=== PATIENT | female | born 1950 | race Caucasian/White ===

== ENCOUNTER 2023-07-21 10:08 | Inpatient (IN) | payer MEDICARE ==
--- NOTE | 2023-07-21 10:26 | ED ---
Chest Pain HPI - General Chief Complaint: Chest Pain Stated Complaint: sob,dizziness,Tachy Time Seen by Provider: 07/21/23 10:25 Source: patient, family, RN notes reviewed Mode of arrival: ambulatory Limitations: no limitations - History of Present Illness Initial Comments: This is a 72-year-old female who presents to the emergency department for chest pain, dizziness, and shortness of breath. Symptoms started after waking up this morning and have since progressed. She denies any history of cardiac problems. States that she also feels very weak and looks paler in color than normal. She does admit to a few episodes of palpitations with exertion in the last couple of weeks as well. She has minor lower abdominal discomfort but denies any nausea, vomiting, blood in her stool, or black/tarry stools. MD Complaint: chest pain - Related Data Home Medications Medication Instructions Recorded Confirmed Simvastatin [Zocor] 20 mg PO HS 08/13/15 07/21/23 Citalopram Hydrobromide [CeleXA] 40 mg PO DAILY 07/21/23 07/21/23 traZODone HCL [Desyrel] 25 mg PO HS PRN 07/21/23 07/21/23 Allergies Allergy/AdvReac Type Severity Reaction Status Date / Time No Known Allergies Allergy Verified 07/21/23 14:33 Review of Systems ROS Statement: Those systems with pertinent positive or pertinent negative responses have been documented in the HPI. ROS Other: All systems not noted in ROS Statement are negative. Past Medical History Past Medical History: Hyperlipidemia History of Any Multi-Drug Resistant Organisms: None Reported Past Surgical History: Tubal Ligation Past Anesthesia/Blood Transfusion Reactions: Motion Sickness Past Alcohol Use History: None Reported Past Drug Use History: None Reported - Past Family History Father Family Medical History: Diabetes Mellitus Mother Additional Family Medical History / Comment(s): pulmonary fibrosis Sister(s) Family Medical History: Diabetes Mellitus Brother(s) Family Medical History: Pulmonary Embolus General Exam - General Exam Comments Initial Comments: Visual Physical Exam Vital signs reviewed General: Well-appearing, nontoxic, no acute distress. Head: Normocephalic, atraumatic Eyes: PERRLA, EOMI ENT: Airway patent Chest: Nonlabored breathing Skin: No visual rash, normal skin tone Neuro: Alert and oriented 3 Musculoskeletal: No gross abnormalities Limitations: no limitations General appearance: alert, in no apparent distress Head exam: Present: atraumatic, normocephalic, normal inspection Respiratory exam: Present: normal lung sounds bilaterally. Absent: respiratory distress, wheezes, rales, rhonchi, stridor Cardiovascular Exam: Present: regular rate, normal rhythm, normal heart sounds. Absent: systolic murmur, diastolic murmur, rubs, gallop, clicks GI/Abdominal exam: Present: soft, normal bowel sounds. Absent: distended, tenderness, guarding, rebound, rigid Rectal exam: Present: heme (-) stool, hemorrhoids. Absent: mass, tenderness Neurological exam: Present: alert, oriented X3, CN II-XII intact Psychiatric exam: Present: normal affect, normal mood Skin exam: Present: warm, dry, intact, normal color. Absent: rash Course Vital Signs 07/21/23 07/21/23 07/21/23 10:31 16:52 17:06 Temperature 98.0 F 98.6 F 97.7 F Pulse Rate 110 H 104 H 91 Respiratory 18 18 18 Rate Blood Pressure 126/71 133/52 148/67 O2 Sat by Pulse 100 100 100 Oximetry 07/21/23 07/21/23 07/21/23 17:26 19:27 20:21 Temperature 97.8 F 99.2 F 98.4 F Pulse Rate 87 112 H 106 H Respiratory 18 18 18 Rate Blood Pressure 131/70 145/58 135/66 O2 Sat by Pulse 100 100 Oximetry 07/21/23 07/21/23 07/21/23 20:27 20:47 22:51 Temperature 98.1 F 97.9 F 98.1 F Pulse Rate 100 101 H 99 Respiratory 16 16 16 Rate Blood Pressure 134/63 135/60 150/78 O2 Sat by Pulse 99 99 97 Oximetry 07/21/23 22:52 Temperature Pulse Rate Respiratory 16 Rate Blood Pressure O2 Sat by Pulse Oximetry Chest Pain MDM - MDM This is a 72 year old female who presents to the emergency department for chest pain and dizziness. Was pt. sent in by a medical professional or institution? @ -No Did you speak to anyone other than the patient for history? @ -No Did you review nursing and triage notes? @ -Yes, and I agree, it is accurate with regards to the patient's symptoms. Were old charts reviewed? @ -No Differential Diagnosis? @ -Differential Dizziness: Benign paroxysmal positional Vertigo, Menieres disease, otitis media, acoustic neuroma, vertebrobasilar insufficiency, cerebellar stroke, encephalitis, hypovolemic, arrhythmia, coronary artery syndrome, anemia, this is not meant to be an all-inclusive list EKG interpreted by me (3pts min.)? @ -EKG interpreted by me demonstrating the following: Sinus tachycardia. Ventricular rate 100 bpm, ND interval 132 ms, QRS duration 81 ms, QTc 414 ms. X-rays interpreted by me (1pt min.)? @ -Chest x-ray obtained, my interpretation identifies no localized consolidations or infiltrates. CT interpreted by me (1pt min.)? @ -Not obtained U/S interpreted by me (1pt. min.)? @ -Not obtained What testing was considered but not performed? (CT, X-rays, U/S, labs)? Why? @ -None What meds were considered but not given? Why? @ -None Did you discuss the management of the patient with other professionals? @ -Yes, Dr. Maynard, who accepts the patient for admission. Did you reconcile home meds? @ -Yes Was smoking cessation discussed for >3mins.? @ -No Was critical care preformed (if so, how long)? @ -No Were there social determinants of health that impacted care today? How? (Homelessness, low income, unemployed, alcoholism, drug addiction, transportation, low edu. Level, literacy, decrease access to med. care, retirement, rehab)? @ -No Was there de-escalation of care discussed even if they declined? (Discuss DNR or withdrawal of care, Hospice)? @ -No What co-morbidities impacted this encounter? (DM, HTN, Smoking, COPD, CAD, Cancer, CVA, Hep., AIDS, mental health diagnosis, sleep apnea, morbid obesity)? @ -HTN, HLD, DM Was patient admitted / discharged? @ -Admitted. Lab work obtained revealing anemia with a hemoglobin of 5.5. Stool occult negative. Patient denies any black/tarry stools or blood in her stool. She had minor discomfort in her abdomen earlier that has since resolved. Denies any nausea/vomiting. She had a normal Cologuard test 6 months ago. Denies any history of anemia or low hemoglobin in the past. States that her hemoglobin is typically elevated. She has never required a blood transfusion. Lab work was otherwise fairly unremarkable. Chest x-ray reveals no acute process. She did have an itchy rash to the back of her left shoulder and Kenalog cream was applied to this. 2 units of packed red blood cells were ordered for the anemia. The cause of the anemia is not clear at this point. Iron profile, ferritin level, vitamin B12, and Folate ordered with results pending at the time of admission. Patient admitted to medicine for anemia and dizziness. Consult placed for hematology/oncology. Undiagnosed new problem with uncertain prognosis? @ -None Drug Therapy requiring intensive monitoring for toxicity (Heparin, Nitro, Insulin, Cardizem)? @ -None Were any procedures done? @ -None Diagnosis/symptom? @ -Anemia, dizziness Acute, or Chronic, or Acute on Chronic? @ -Acute Uncomplicated (without systemic symptoms) or Complicated (systemic symptoms)? @ -Complicated Side effects of treatment? @ -None Exacerbation, Progression, or Severe Exacerbation] @ -Not applicable Poses a threat to life or bodily function? @ -Yes This case was discussed in detail with the attending ED physician, Dr. Rooney. Presentation, findings, and treatment plan discussed in detail as well. Disposition Clinical Impression: Anemia, Dizziness Disposition: ADMITTED IP TO THIS [facility] Time of Disposition: 14:31
[2023-07-21 11:27] LABS: ALT 12 U/L (4-34); AST 28 U/L (14-36); African American GFR (CKD) >90 (>60 ml/min/1.73 sqM); Albumin 3.9 g/dL (3.5-5.0); Alkaline Phosphatase 92 U/L (38-126); Anion Gap 9 mmol/L; Blood Urea Nitrogen 6 mg/dL (7-17); Calcium 9.2 mg/dL (8.4-10.2); Carbon Dioxide 24 mmol/L (22-30); Chloride 102 mmol/L (98-107); Glucose 263 mg/dL (74-99); Magnesium 1.8 mg/dL (1.6-2.3); Non-African American GFR(CKD) >90 (>60 ml/min/1.73 sqM); Potassium 3.4 mmol/L (3.5-5.1); Sodium 135 mmol/L (137-145); Total Bilirubin 1.1 mg/dL (0.2-1.3)
[2023-07-21 11:36] LABS: Prothrombin Time 10.6 sec (10.0-12.5)
[2023-07-21 11:43] LABS: Partial Thromboplastin Time 20.7 sec (22.0-30.0)
[2023-07-21 12:00] LABS: Anisocytosis Slight; Basophils % (A) 0 %; Eosinophils % (A) 1 %; HCT 20.7 % (34.0-46.0); Hypochromasia Marked; Lymphocytes # (A) 0.5 k/uL (1.0-4.8); Lymphocytes % (A) 13 %; MCH 16.4 pg (25.0-35.0); MCHC 26.4 g/dL (31.0-37.0); MCV 61.9 fL (80.0-100.0); Mean Platelet Volume 7.5; Microcytosis Marked; Monocytes # (A) 0.2 k/uL (0-1.0); Monocytes % (A) 6 %; Neutrophils # (A) 2.8 k/uL (1.3-7.7); Neutrophils % (A) 77 %; Platelet Count 308 k/uL (150-450); Poikilocytosis Slight; RBC 3.34 m/uL (3.80-5.40); WBC 3.6 k/uL (3.8-10.6)
[2023-07-21 12:10] LABS: Appearance,Urine Clear (Clear); Bilirubin,Urine Negative (Negative); Blood,Urine Negative (Negative); Color,Urine Colorless; Glucose,Urine (UA) Negative (Negative); Ketones,Urine 1+ (Negative); Leukocyte Esterase,Urine Negative (Negative); Nitrite,Urine Negative (Negative); PH, Urine 8.5 (5.0-8.0); Protein,Urine Negative (Negative); Specific Gravity,Urine 1.011 (1.001-1.035); Urobilinogen,Urine <2.0 mg/dL (<2.0)
[2023-07-21 12:17] LABS: HGB 5.5 gm/dL (11.4-16.0)
--- NOTE | 2023-07-21 12:24 | XR ---
EXAMINATION TYPE: XR chest 2V DATE OF EXAM: 07/21/2023 11:48 AM CLINICAL INDICATION:Female, 72 years old with history of Chest Pain; COMPARISON: Chest radiographs from 07/21/2023 TECHNIQUE: XR chest 2V Frontal and lateral views of the chest. FINDINGS: Lungs/Pleura: There is no evidence of pleural effusion, focal consolidation, or pneumothorax. Pulmonary vascularity: Unremarkable. Heart/mediastinum: Cardiomediastinal silhouette is unremarkable. Musculoskeletal: No acute osseous pathology. IMPRESSION: No acute cardiopulmonary disease/process.
[2023-07-21] MEDS: TRIAMCINOLONE 0.1% CREAM 80 GM TUBE TOPICAL ONE (14:11)
[2023-07-21] MEDS ORDERED: NALOXONE 0.4 MG/ML 1 ML VIAL IV PRN (14:31)
[2023-07-21] MEDS ORDERED: MORPHINE SULFATE 4 MG/ML SYRINGE IV PRN (14:31)
[2023-07-21] MEDS ORDERED: ACETAMINOPHEN TAB 325 MG TAB PO PRN (14:31)
[2023-07-21] MEDS ORDERED: ONDANSETRON 4 MG/2 ML VIAL IVP PRN (14:31)
[2023-07-21] MEDS ORDERED: DEXTROSE 50% SYRINGE 50 ML IVP PRN ×2 (15:08)
[2023-07-21] MEDS: PANTOPRAZOLE 40 MG/10 ML VIAL IVP ONE (15:53)
[2023-07-21 16:55] LABS: Glucose,Whole Blood 194 mg/dL (70-110)
[2023-07-21] MEDS: INSULIN ASPART (NovoLOG) 100 UNIT/ML VIAL SQ SCH (18:59)
[2023-07-21] MEDS: ATORVASTATIN 10 MG TAB PO SCH (20:29)
--- NOTE | 2023-07-21 20:36 | P.HPIM ---
History of Present Illness H&P Date: 07/21/23 Chief Complaint: Generalized weakness Patient is a 72-year-old female with a past medical history of diabetes type 2 iys-nqafcol-wkpehazkt, h hyperlipidemia presents to ER with complaints of generalized weakness worsening for the past 2 weeks. Patient states that she feels very tired and increased heart rate with minimal walking. Patient was also excessively dyspneic. Otherwise patient denied any complaints of chest pain/tightness. No complaints of nausea or vomiting. Complains of minimal lower abdominal discomfort. Denied any hematemesis. Patient states that she noticed specks of dark stool few days ago. Denies any dark tarry stools. Patient thought her symptoms are due to her diabetic medications. Patient does take Aleve twice daily and has been taking more often recently. Chest x-ray showed no acute cardiopulmonary process/disease. EKG showed sinus tachycardia. Laboratory data showed WBC 3.6 hemoglobin 5.5 MCV 61.9 and platelets 308 RDW 19.0 Sodium 135 potassium 3.4 chloride 102 BUN 6 and creatinine 0.51 and blood sugar 263. Urinalysis is negative for infection Stool for occult blood is negative. Review of Systems Constitutional: Patient denies any fever or chills . Patient does have generalized weakness. Denied weight loss. Abdomen: Patient denied nausea vomiting and diarrhea. Minimal lower abdominal pain.. Cardiovascular: Patient denies any chest pain. Patient does have exertional r short of breath and palpitations. No leg swelling Respiratory: patient denied any cough is from production. Exertional shortness of breath Neurologic: Patient denied any numbness or tingling headache. Musculoskeletal: Patient denies any complaints of joint swelling or deformity. Skin: Negative Psychiatric: Negative Endocrine: No heat or cold intolerance. No recent weight gain. Genitourinary: No dysuria or hematuria. All other 14 point ROS negative except the above Past Medical History Past Medical History: Hyperlipidemia Additional Past Medical History / Comment(s): seasonal allergies History of Any Multi-Drug Resistant Organisms: None Reported Past Surgical History: Tubal Ligation Past Anesthesia/Blood Transfusion Reactions: Motion Sickness Past Alcohol Use History: None Reported Past Drug Use History: None Reported - Past Family History Father Family Medical History: Diabetes Mellitus Mother Additional Family Medical History / Comment(s): pulmonary fibrosis Sister(s) Family Medical History: Diabetes Mellitus Brother(s) Family Medical History: Pulmonary Embolus Medications and Allergies Home Medications Medication Instructions Recorded Confirmed Type Simvastatin [Zocor] 20 mg PO HS 08/13/15 07/21/23 History Citalopram Hydrobromide [CeleXA] 40 mg PO DAILY 07/21/23 07/21/23 History traZODone HCL [Desyrel] 25 mg PO HS PRN 07/21/23 07/21/23 History Allergies Allergy/AdvReac Type Severity Reaction Status Date / Time No Known Allergies Allergy Verified 07/21/23 14:33 Physical Exam Vitals: Vital Signs Temp Pulse Resp BP Pulse Ox 07/21/23 20:27 98.1 F 100 16 134/63 99 07/21/23 20:21 98.4 F 106 H 18 135/66 100 07/21/23 19:27 99.2 F 112 H 18 145/58 100 07/21/23 17:26 97.8 F 87 18 131/70 07/21/23 17:06 97.7 F 91 18 148/67 100 07/21/23 16:52 98.6 F 104 H 18 133/52 100 07/21/23 10:31 98.0 F 110 H 18 126/71 100 Intake and Output 07/21/23 07/21/23 07/21/23 06:59 14:59 22:59 Intake Total 310 Balance 310 Intake: Blood Product 310 As-1 Unit 310 [id number] As-1 Unit 0 [id number] Other: Weight 63.503 kg 63.503 kg PHYSICAL EXAMINATION: Patient is lying in the bed comfortably, no acute distress, awake alert and oriented.. HEENT: Normocephalic. Neck is supple. Pupils reactive. Nostrils clear. Oral cavity is moist. Neck reveals no JVD, carotid bruits, or thyromegaly. CHEST EXAMINATION: Trachea is central. Symmetrical expansion. Lung rojas clear to auscultation and percussion. CARDIAC: Normal S1, S2 with no gallops. No murmurs, tachycardic ABDOMEN: Soft. Bowel sounds normal. No organomegaly. No abdominal bruits. Extremities: reveal no edema. No clubbing or cyanosis Neurologically awake, alert, oriented x3 with well-coordinated movements. No focal deficits noted Skin: No rash or skin lesions. Psychiatric: Coperative. Nonsuicidal Musculoskeletal: No joint swelling or deformity. Normal range of motion. Results CBC & Chem 7: 07/21/23 10:56 07/21/23 10:56 Labs: Abnormal Lab Results - Last 24 Hours (Table) 07/21/23 07/21/23 07/21/23 Range/Units 10:56 10:56 10:56 WBC 3.6 L (3.8-10.6) k/uL RBC 3.34 L (3.80-5.40) m/uL Hgb 5.5 L* (11.4-16.0) gm/dL Hct 20.7 L (34.0-46.0) % MCV 61.9 L (80.0-100.0) fL MCH 16.4 L (25.0-35.0) pg MCHC 26.4 L (31.0-37.0) g/dL RDW 19.0 H (11.5-15.5) % Lymphocytes # 0.5 L (1.0-4.8) k/uL APTT 20.7 L (22.0-30.0) sec Sodium (137-145) mmol/L Potassium (3.5-5.1) mmol/L BUN (7-17) mg/dL Creatinine (0.52-1.04) mg/dL Glucose (74-99) mg/dL POC Glucose (mg/dL) (70-110) mg/dL Total Protein (6.3-8.2) g/dL Folate (4.40-31.00) ng/mL Urine pH 8.5 H (5.0-8.0) Urine Ketones 1+ H (Negative) Crossmatch 07/21/23 07/21/23 07/21/23 Range/Units 10:56 10:56 14:00 WBC (3.8-10.6) k/uL RBC (3.80-5.40) m/uL Hgb (11.4-16.0) gm/dL Hct (34.0-46.0) % MCV (80.0-100.0) fL MCH (25.0-35.0) pg MCHC (31.0-37.0) g/dL RDW (11.5-15.5) % Lymphocytes # (1.0-4.8) k/uL APTT (22.0-30.0) sec Sodium 135 L (137-145) mmol/L Potassium 3.4 L (3.5-5.1) mmol/L BUN 6 L (7-17) mg/dL Creatinine 0.51 L (0.52-1.04) mg/dL Glucose 263 H (74-99) mg/dL POC Glucose (mg/dL) (70-110) mg/dL Total Protein 6.0 L (6.3-8.2) g/dL Folate 32.10 H (4.40-31.00) ng/mL Urine pH (5.0-8.0) Urine Ketones (Negative) Crossmatch See Detail 07/21/23 Range/Units 16:54 WBC (3.8-10.6) k/uL RBC (3.80-5.40) m/uL Hgb (11.4-16.0) gm/dL Hct (34.0-46.0) % MCV (80.0-100.0) fL MCH (25.0-35.0) pg MCHC (31.0-37.0) g/dL RDW (11.5-15.5) % Lymphocytes # (1.0-4.8) k/uL APTT (22.0-30.0) sec Sodium (137-145) mmol/L Potassium (3.5-5.1) mmol/L BUN (7-17) mg/dL Creatinine (0.52-1.04) mg/dL Glucose (74-99) mg/dL POC Glucose (mg/dL) 194 H (70-110) mg/dL Total Protein (6.3-8.2) g/dL Folate (4.40-31.00) ng/mL Urine pH (5.0-8.0) Urine Ketones (Negative) Crossmatch Thrombosis Risk Factor Assmnt - DVT/VTE Prophylaxis DVT/VTE Prophylaxis: Mechanical Prophylaxis ordered - Choose All That Apply Any of the Below Risk Factors Present?: No Other Risk Factors: Yes Each Risk Factor Represents 2 Points: Age 61-74 years Other congenital or acquired thrombophilia - If yes, enter type in comment: No Thrombosis Risk Factor Assessment Total Risk Factor Score: 2 Thrombosis Risk Factor Assessment Level: Low Risk Assessment and Plan Assessment: Symptomatic anemia with hemoglobin 5.5 on admission Microcytic anemia rule out iron deficiency Hypovolemic hyponatremia Mild hypokalemia Hyperglycemia with uncontrolled diabetes type 2 [id number]-menzlbteo Hyperlipidemia History of NSAID/Aleve use GI and DVT prophylaxis with SCDs Plan: Patient will be continued on IV hydration with normal saline. Monitor PRBC was ordered. Monitor H&H closely. Follow-up iron profile, B12 and folate and TSH levels. FOBT is negative. Due to history of NSAID use patient will be given Protonix IV push and hematology was consulted for evaluation. Continue with insulin sliding scale and follow-up A1c level Current with home medications. Discussed with the patient and her at bedside in detail. Time with Patient: Greater than 30
[2023-07-21 20:51] LABS: % Iron Saturation 2.31 (12.00-45.00); Ferritin 2.8 ng/mL (10.0-291.0)
[2023-07-21] MEDS: POTASSIUM CHLORIDE ER 20 MEQ TAB.ER PO STA (21:11)
[2023-07-21] MEDS: SODIUM CHLORIDE 0.9% 1,000 ML IV SCH (23:01)
[2023-07-22] MEDS: hydrOXYzine HCL 25 MG TAB PO STA (03:27)
[2023-07-22 06:06] LABS: Glucose,Whole Blood 203 mg/dL (70-110)
[2023-07-22 08:04] LABS: Anisocytosis Moderate; Basophils % (A) 1 %; Eosinophils # (A) 0.1 k/uL (0-0.7); Eosinophils % (A) 2 %; HCT 28.3 % (34.0-46.0); Hypochromasia Marked; Lymphocytes # (A) 0.8 k/uL (1.0-4.8); Lymphocytes % (A) 22 %; MCH 21.2 pg (25.0-35.0); MCHC 29.7 g/dL (31.0-37.0); Mean Platelet Volume 9.4; Microcytosis Marked; Monocytes # (A) 0.2 k/uL (0-1.0); Monocytes % (A) 7 %; Neutrophils # (A) 2.3 k/uL (1.3-7.7); Neutrophils % (A) 65 %; Platelet Count 286 k/uL (150-450); Poikilocytosis Marked; RBC 3.96 m/uL (3.80-5.40); RDW 22.5 % (11.5-15.5); WBC 3.5 k/uL (3.8-10.6)
[2023-07-22 08:06] LABS: HGB 8.4 gm/dL (11.4-16.0)
[2023-07-22 08:07] LABS: MCV 71.3 fL (80.0-100.0)
[2023-07-22 08:19] LABS: African American GFR (CKD) >90 (>60 ml/min/1.73 sqM); Anion Gap 8 mmol/L; Blood Urea Nitrogen 6 mg/dL (7-17); Calcium 9.2 mg/dL (8.4-10.2); Carbon Dioxide 23 mmol/L (22-30); Chloride 106 mmol/L (98-107); Glucose 167 mg/dL (74-99); Non-African American GFR(CKD) >90 (>60 ml/min/1.73 sqM); Sodium 137 mmol/L (137-145)
[2023-07-22] MEDS: CITALOPRAM HYDROBROMIDE 20 MG TAB PO SCH (08:41)
[2023-07-22] MEDS: SODIUM FERRIC GLUCONAT-SUCROSE 125 MG in SODIUM CHLORIDE 0.9% 100 ML IVPB SCH (09:52)
[2023-07-22 10:19] LABS: T4, Free (Free Thyroxine) 1.07 ng/dL (0.78-2.19)
[2023-07-22 11:46] LABS: Glucose,Whole Blood 209 mg/dL (70-110)
[2023-07-22] MEDS: PANTOPRAZOLE 40 MG TABLET PO SCH (12:39)
--- NOTE | 2023-07-22 15:57 | P.CONS ---
History of Present Illness - Reason for Consult Consult date: 07/22/23 Symptomatic anemia Requesting physician: Victor Hugo Maynard - Chief Complaint Shortness of breath, weakness - History of Present Illness This is a pleasant 72-year-old female who presented to the emergency department with complaints of shortness of breath, dyspnea on exertion and weakness. She has a past medical history of type 2 diabetes mellitus, and hyperlipidemia. S tatbennett symptoms have been ongoing over the last couple weeks. Patient presented to the emergency department underwent blood work and was found to be anemic. Gastroenterology was consulted for symptomatic anemia. Patient's hemoglobin on admission was 5.5, she is status post 2 units of blood transfusion. She denies any black stool or blood in her stool. States that she has had some abdominal discomfort at times but states she eats a lot of fruits and vegetables and thinks it is related to that. She denies any history of a GI bleed. She denies any anticoagulation, she does take 81 mg aspirin daily as well as 1 Aleve at bedtime for muscle pain for the last 2 months duration. No history of peptic ulcer disease or anemia. She states she had an EGD probably about 10 years ago down in 1 diet but that was normal. Last colonoscopy was with Dr. Devine in 2016 with findings of diverticulosis and external hemorrhoids. Patient does admit to drinking about one third of a liter of wine nightly as well as a glass of vodka nightly although she has not been drinking the vodka this past week. She states she drinks to help her sleep and this has been ongoing for some time. She denies any known history of any liver disease. Liver enzymes are normal. Review of Systems REVIEW OF SYSTEMS: CARDIOPULMONARY: No chest pain or shortness of breath. Dyspnea with exertion. Gastrointestinal: No abdominal pain or epigastric pain. No nausea or vomiting. No hematemesis, coffee-ground emesis. No rectal bleeding, or melena. GENITOURINARY: No dysuria or hematuria. MUSCULOSKELETAL: Reports normal range of motion., Joint pain. SKIN: No rashes. No jaundice. ENDOCRINE: No chills, fevers. No excessive weight gain or loss. No polydipsia or polyuria. PSYCHIATRIC: Unremarkable. NEUROLOGY: No change in mental status. Denies dizziness, headache. ENT: Vision unremarkable. CONSTITUTIONAL: No recent weight loss. No fever, chills, night sweats. Increased weakness and fatigue. Past Medical History Past Medical History: Hyperlipidemia Additional Past Medical History / Comment(s): seasonal allergies History of Any Multi-Drug Resistant Organisms: None Reported Past Surgical History: Tubal Ligation Past Anesthesia/Blood Transfusion Reactions: Motion Sickness Past Alcohol Use History: None Reported Past Drug Use History: None Reported - Past Family History Father Family Medical History: Diabetes Mellitus Mother Additional Family Medical History / Comment(s): pulmonary fibrosis Sister(s) Family Medical History: Diabetes Mellitus Brother(s) Family Medical History: Pulmonary Embolus Medications and Allergies Home Medications Medication Instructions Recorded Confirmed Type Simvastatin [Zocor] 20 mg PO HS 08/13/15 07/21/23 History Citalopram Hydrobromide [CeleXA] 40 mg PO DAILY 07/21/23 07/21/23 History traZODone HCL [Desyrel] 25 mg PO HS PRN 07/21/23 07/21/23 History Allergies Allergy/AdvReac Type Severity Reaction Status Date / Time No Known Allergies Allergy Verified 07/21/23 14:33 Physical Exam Vitals: Vital Signs Temp Pulse Pulse Resp BP BP Pulse Ox 07/22/23 15:38 98.7 F 88 16 138/74 98 07/22/23 12:07 99 07/22/23 11:16 105 H 16 164/77 99 07/22/23 08:38 16 07/22/23 08:37 98.2 F 98 16 124/64 99 07/22/23 04:00 98.3 F 77 16 126/80 97 07/22/23 02:00 16 07/21/23 22:52 16 07/21/23 22:51 98.1 F 99 16 150/78 97 07/21/23 20:47 97.9 F 101 H 16 135/60 99 07/21/23 20:27 98.1 F 100 16 134/63 99 07/21/23 20:21 98.4 F 106 H 18 135/66 100 07/21/23 19:27 99.2 F 112 H 18 145/58 100 07/21/23 17:26 97.8 F 87 18 131/70 07/21/23 17:06 97.7 F 91 18 148/67 100 07/21/23 16:52 98.6 F 104 H 18 133/52 100 Intake and Output 07/22/23 07/22/23 07/22/23 06:59 14:59 22:59 Intake Total 480 358 Balance 480 358 Intake: Oral 480 358 Other: # Voids 1 1 General appearance: The patient is alert, oriented, appears in no acute distress. HET: Head is normocephalic and atraumatic. Conjunctiva pink. Sclera anicteric. Neck: Supple without lymphadenopathy. Trachea midline. Heart: Regular. Lungs: Equal expansion, normal respiratory effort. Abdomen: Soft, nontender, nondistended with bowel sounds. No guarding or rigidity. Skin: No rashes. No jaundice. Extremities: Normal skin color and turgor. No pedal edema. Neurological: No focal deficits. Alert and oriented x3. Results CBC & Chem 7: 07/22/23 07:34 07/22/23 07:34 Labs: Abnormal Lab Results - Last 24 Hours (Table) 07/21/23 07/21/23 07/21/23 Range/Units 10:56 10:56 14:00 WBC (3.8-10.6) k/uL Hgb (11.4-16.0) gm/dL Hct (34.0-46.0) % MCV (80.0-100.0) fL MCH (25.0-35.0) pg MCHC (31.0-37.0) g/dL RDW (11.5-15.5) % Lymphocytes # (1.0-4.8) k/uL BUN (7-17) mg/dL Glucose (74-99) mg/dL POC Glucose (mg/dL) (70-110) mg/dL Hemoglobin A1c (<=6.0) % Iron 10 L (50-170) UG/DL % Saturation 2.31 L (12.00-45.00) Ferritin 2.8 L (10.0-291.0) ng/mL Folate 32.10 H (4.40-31.00) ng/mL TSH (0.465-4.680) mIU/L Crossmatch See Detail 07/21/23 07/22/23 07/22/23 Range/Units 16:54 06:03 07:34 WBC (3.8-10.6) k/uL Hgb (11.4-16.0) gm/dL Hct (34.0-46.0) % MCV (80.0-100.0) fL MCH (25.0-35.0) pg MCHC (31.0-37.0) g/dL RDW (11.5-15.5) % Lymphocytes # (1.0-4.8) k/uL BUN (7-17) mg/dL Glucose (74-99) mg/dL POC Glucose (mg/dL) 194 H 203 H (70-110) mg/dL Hemoglobin A1c 6.1 H (<=6.0) % Iron (50-170) UG/DL % Saturation (12.00-45.00) Ferritin (10.0-291.0) ng/mL Folate (4.40-31.00) ng/mL TSH (0.465-4.680) mIU/L Crossmatch 07/22/23 07/22/23 07/22/23 Range/Units 07:34 07:34 11:40 WBC 3.5 L (3.8-10.6) k/uL Hgb 8.4 L D (11.4-16.0) gm/dL Hct 28.3 L (34.0-46.0) % MCV 71.3 L D (80.0-100.0) fL MCH 21.2 L (25.0-35.0) pg MCHC 29.7 L (31.0-37.0) g/dL RDW 22.5 H (11.5-15.5) % Lymphocytes # 0.8 L (1.0-4.8) k/uL BUN 6 L (7-17) mg/dL Glucose 167 H (74-99) mg/dL POC Glucose (mg/dL) 209 H (70-110) mg/dL Hemoglobin A1c (<=6.0) % Iron (50-170) UG/DL % Saturation (12.00-45.00) Ferritin (10.0-291.0) ng/mL Folate (4.40-31.00) ng/mL TSH 7.630 H (0.465-4.680) mIU/L Crossmatch Assessment and Plan (1) Iron deficiency anemia Narrative/Plan: 72-year-old female presenting for symptomatic anemia found to have a hemoglobin of 5.5 without any clear source of GI symptoms. No previous history of anemia, no previous history of blood transfusions or peptic ulcer disease. She does take a daily aspirin as well as Aleve daily for last 2 months duration. Also consumes alcohol regularly. Iron studies low, microcytic anemia present. Need to consider possible GI source for iron deficiency anemia, possible etiologies include peptic ulcer disease, AVM, gastritis, esophagitis, esophageal varices, or other possible etiologies. Will proceed with EGD and colonoscopy tomorrow, possible small bowel capsule endoscopy if normal EGD and colonoscopy. Current Visit: Yes Status: Acute Code(s): D50.9 - IRON DEFICIENCY ANEMIA, UNSPECIFIED SNOMED Code(s): 82662312 (2) Microcytic anemia Current Visit: Yes Status: Acute Code(s): D50.9 - IRON DEFICIENCY ANEMIA, UNSPECIFIED SNOMED Code(s): 550947919 (3) Type 2 diabetes mellitus Current Visit: Yes Status: Acute Code(s): E11.9 - TYPE 2 DIABETES MELLITUS WITHOUT COMPLICATIONS SNOMED Code(s): 21928322 (4) Hyperlipidemia Current Visit: No Status: Acute Code(s): E78.5 - HYPERLIPIDEMIA, UNSPECIFIED SNOMED Code(s): 58481959 Plan: 1. Continue symptomatic and supportive care 2. Clear liquid diet, n.p.o. after midnight 3. Bowel prep half this evening, half in the morning 4. Daily CBC, transfuse for hemoglobin less than 7 5. Agree with iron infusions 6. Plan for EGD and colonoscopy tomorrow afternoon, possible small bowel capsule endoscopy if upper and lower endoscopy with normal findings 7. Continue with recommendations from hematology Thank you for this consultation, we will continue to follow. Dr. David Colon I agree with the dictator's note, documented as a scribe by Krys Mccarthy.
[2023-07-22 16:42] LABS: Glucose,Whole Blood 143 mg/dL (70-110)
[2023-07-22] MEDS: PEG 3350 (236 GM/BTL) + LYTES 4,000 ML BOTTLE PO ONE (17:09)
[2023-07-22] MEDS: HYDROcodone/APAP 5-325MG 1 EACH TAB PO PRN (19:30)
--- NOTE | 2023-07-22 19:31 | P.CONS ---
History of Present Illness - Reason for Consult Consult date: 07/22/23 anemia Requesting physician: Jillian Chavez - Chief Complaint SOB, weak - History of Present Illness Patient is a 72-year-old female with a significant history of hyperlipidemia and type 2 diabetes. Consult was placed for anemia. Patient reports progressive shortness of breath over the last couple weeks. She also reports palpitations, fatigue and generalized weakness. Patient denies any episodes of acute bleeding. She has experienced a couple episodes of diarrhea, that appeared to be "oily with black seeds." Last colonoscopy was approximately 10 years ago, bu t had Cologuard 6 months ago which was negative. Patient does report that she has been taking Aleve and baby aspirin daily. Denies abdominal pain and unintentional weight loss. Upon admission hemoglobin was noted at 5.5 with MCV 61.9. Platelets stable at 308,000. 2 units PRBCs was given. Repeat hemoglobin today 8.4. Patient does report improvement in symptoms at today's visit. GI has been consulted with plans for endoscopy tomorrow. Review of Systems 10 point ROS is negative except as stated in the HPI Past Medical History Past Medical History: Hyperlipidemia Additional Past Medical History / Comment(s): seasonal allergies History of Any Multi-Drug Resistant Organisms: None Reported Past Surgical History: Tubal Ligation Past Anesthesia/Blood Transfusion Reactions: Motion Sickness Past Alcohol Use History: None Reported Past Drug Use History: None Reported - Past Family History Father Family Medical History: Diabetes Mellitus Mother Additional Family Medical History / Comment(s): pulmonary fibrosis Sister(s) Family Medical History: Diabetes Mellitus Brother(s) Family Medical History: Pulmonary Embolus Medications and Allergies Home Medications Medication Instructions Recorded Confirmed Type Simvastatin [Zocor] 20 mg PO HS 08/13/15 07/21/23 History Citalopram Hydrobromide [CeleXA] 40 mg PO DAILY 07/21/23 07/21/23 History traZODone HCL [Desyrel] 25 mg PO HS PRN 07/21/23 07/21/23 History Allergies Allergy/AdvReac Type Severity Reaction Status Date / Time No Known Allergies Allergy Verified 07/21/23 14:33 Physical Exam Vitals: Vital Signs Temp Pulse Pulse Resp BP BP Pulse Ox 07/22/23 12:07 99 07/22/23 11:16 105 H 16 164/77 99 07/22/23 08:38 16 07/22/23 08:37 98.2 F 98 16 124/64 99 07/22/23 04:00 98.3 F 77 16 126/80 97 07/22/23 02:00 16 07/21/23 22:52 16 07/21/23 22:51 98.1 F 99 16 150/78 97 07/21/23 20:47 97.9 F 101 H 16 135/60 99 07/21/23 20:27 98.1 F 100 16 134/63 99 07/21/23 20:21 98.4 F 106 H 18 135/66 100 07/21/23 19:27 99.2 F 112 H 18 145/58 100 07/21/23 17:26 97.8 F 87 18 131/70 07/21/23 17:06 97.7 F 91 18 148/67 100 07/21/23 16:52 98.6 F 104 H 18 133/52 100 Intake and Output 07/21/23 07/22/23 07/22/23 22:59 06:59 14:59 Intake Total 620 480 118 Balance 620 480 118 Intake: Oral 480 118 Blood Product 620 As-1 Unit 310 [id number] As-1 Unit 310 [id number] Other: # Voids 1 1 Weight 63.503 kg - Constitutional General appearance: average body habitus, no acute distress - EENT Eyes: anicteric sclerae, EOMI ENT: hearing grossly normal - Respiratory Respiratory: bilateral: CTA - Cardiovascular tachycardia Rhythm: regular Heart sounds: normal: S1, S2 - Gastrointestinal General gastrointestinal: normal bowel sounds, soft, no tenderness - Integumentary Integumentary: pale - Neurologic Neurologic: CNII-XII intact - Musculoskeletal Musculoskeletal: strength equal bilaterally - Psychiatric Psychiatric: A&O x's 3 Results CBC & Chem 7: 07/22/23 07:34 07/22/23 07:34 Labs: Abnormal Lab Results - Last 24 Hours (Table) 07/21/23 07/21/23 07/21/23 Range/Units 10:56 10:56 14:00 WBC (3.8-10.6) k/uL Hgb (11.4-16.0) gm/dL Hct (34.0-46.0) % MCV (80.0-100.0) fL MCH (25.0-35.0) pg MCHC (31.0-37.0) g/dL RDW (11.5-15.5) % Lymphocytes # (1.0-4.8) k/uL BUN (7-17) mg/dL Glucose (74-99) mg/dL POC Glucose (mg/dL) (70-110) mg/dL Hemoglobin A1c (<=6.0) % Iron 10 L (50-170) UG/DL % Saturation 2.31 L (12.00-45.00) Ferritin 2.8 L (10.0-291.0) ng/mL Folate 32.10 H (4.40-31.00) ng/mL TSH (0.465-4.680) mIU/L Crossmatch See Detail 07/21/23 07/22/23 07/22/23 Range/Units 16:54 06:03 07:34 WBC (3.8-10.6) k/uL Hgb (11.4-16.0) gm/dL Hct (34.0-46.0) % MCV (80.0-100.0) fL MCH (25.0-35.0) pg MCHC (31.0-37.0) g/dL RDW (11.5-15.5) % Lymphocytes # (1.0-4.8) k/uL BUN (7-17) mg/dL Glucose (74-99) mg/dL POC Glucose (mg/dL) 194 H 203 H (70-110) mg/dL Hemoglobin A1c 6.1 H (<=6.0) % Iron (50-170) UG/DL % Saturation (12.00-45.00) Ferritin (10.0-291.0) ng/mL Folate (4.40-31.00) ng/mL TSH (0.465-4.680) mIU/L Crossmatch 07/22/23 07/22/23 07/22/23 Range/Units 07:34 07:34 11:40 WBC 3.5 L (3.8-10.6) k/uL Hgb 8.4 L D (11.4-16.0) gm/dL Hct 28.3 L (34.0-46.0) % MCV 71.3 L D (80.0-100.0) fL MCH 21.2 L (25.0-35.0) pg MCHC 29.7 L (31.0-37.0) g/dL RDW 22.5 H (11.5-15.5) % Lymphocytes # 0.8 L (1.0-4.8) k/uL BUN 6 L (7-17) mg/dL Glucose 167 H (74-99) mg/dL POC Glucose (mg/dL) 209 H (70-110) mg/dL Hemoglobin A1c (<=6.0) % Iron (50-170) UG/DL % Saturation (12.00-45.00) Ferritin (10.0-291.0) ng/mL Folate (4.40-31.00) ng/mL TSH 7.630 H (0.465-4.680) mIU/L Crossmatch Assessment and Plan (1) Iron deficiency anemia Current Visit: Yes Status: Acute Priority: High Code(s): D50.9 - IRON DEFICIENCY ANEMIA, UNSPECIFIED SNOMED Code(s): 63745104 Plan: Iron deficiency anemia: Presented with progressive shortness of breath over the last couple weeks. She also reports palpitations, fatigue and generalized weakness. Patient denies any episodes of acute bleeding. She has experienced a couple episodes of diarrhea, that appeared to be "oily with black seeds." Last colonoscopy was approximately 10 years ago, but had Cologuard 6 months ago which was negative. Patient does report that she has been taking Aleve and baby aspirin daily. - Upon admission hemoglobin was noted at 5.5 with MCV 61.9. Platelets stable at 308,000. S/p 2 units PRBCs. Repeat hemoglobin today 8.4 - Anemia workup revealed iron saturation 2.3%, ferritin 2.8. Vitamin B12 427, folate 32.1. Will obtain MMA. Calculated iron deficit 1643g, 5 doses parenteral iron ordered - GI has been consulted with plans for endoscopy tomorrow - CBC daily, please transfuse for hgb <7 or if symptomatic Attests: I have performed H&P and developed impression and plan of care for patient, discussed with dictator. I agree with dictated note, documented as a sc ribe
[2023-07-22 20:06] LABS: Glucose,Whole Blood 143 mg/dL (70-110)
[2023-07-22] MEDS: traZODone HCL 50 MG TAB PO PRN (20:27)
--- NOTE | 2023-07-22 22:39 | P.PN ---
Subjective Progress Note Date: 07/22/23 Patient is a 72-year-old female with a past medical history of diabetes type 2 eec-pbhsial-ysejwthfh, h hyperlipidemia presents to ER with complaints of generalized weakness worsening for the past 2 weeks. Patient states that she feels very tired and increased heart rate with minimal walking. Patient was also excessively dyspneic. Otherwise patient denied any complaints of chest pain/tightness. No complaints of nausea or vomiting. Complains of minimal lower abdominal discomfort. Denied any hematemesis. Patient states that she noticed specks of dark stool few days ago. Denies any dark tarry stools. Patient thought her symptoms are due to her diabetic medications. Patient does take Aleve twice daily and has been taking more often recently. Chest x-ray showed no acute cardiopulmonary process/disease. EKG showed sinus tachycardia. Laboratory data showed WBC 3.6 hemoglobin 5.5 MCV 61.9 and platelets 308 RDW 19.0 Sodium 135 potassium 3.4 chloride 102 BUN 6 and creatinine 0.51 and blood sugar 263. Urinalysis is negative for infection Stool for occult blood is negative. 07/22/2023 Patient is currently resting in the bed. Awake alert and oriented x 3. States that she feels better today. Hemoglobin improved to 8.4 No complaints of chest pain or shortness of breath. No headache or dizziness or lightheadedness. Patient is being continued on Protonix and was also started on iron supp lementation. Patient was seen by gastroenterology and is planning for EGD and colonoscopy likely tomorrow. Other laboratory data showed WBC 3.5 hemoglobin 8.4 and platelets 286 Sodium 137 potassium 4.0 chloride 106 bicarb is 23 BUN 16 creatinine 0.52 Blood sugar 167. A1c 6.1 TSH 7.63. Free T4 level within normal limits at 1.07 Current medications reviewed. Objective - Vital Signs Vital signs: Vital Signs Temp 98.2 F 07/22/23 20:00 Pulse 66 07/22/23 20:00 Resp 18 07/22/23 20:00 BP 143/76 07/22/23 20:00 Pulse Ox 98 07/22/23 20:00 FiO2 Intake & Output 07/22/23 07/22/23 07/23/23 06:59 18:59 06:59 Intake Total 790 358 Balance 790 358 Intake: Oral 480 358 Blood Product 310 Rc As-1 Unit 310 [id number] Other: # Voids 1 1 # Bowel Movements 1 - Exam PHYSICAL EXAMINATION: Patient is lying in the bed comfortably, no acute distress, awake alert and oriented.. HEENT: Normocephalic. Neck is supple. Pupils reactive. Nostrils clear. Oral cavity is moist. Neck reveals no JVD, carotid bruits, or thyromegaly. CHEST EXAMINATION: Trachea is central. Symmetrical expansion. Lung rojas clear to auscultation and percussion. CARDIAC: Normal S1, S2 with no gallops. No murmurs ABDOMEN: Soft. Bowel sounds normal. No organomegaly. No abdominal bruits. Extremities: reveal no edema. No clubbing or cyanosis Neurologically awake, alert, oriented x3 with well-coordinated movements. No focal deficits noted Skin: No rash or skin lesions. Psychiatric: Coperative. Nonsuicidal Musculoskeletal: No joint swelling or deformity. Normal range of motion. - Labs CBC & Chem 7: 07/22/23 07:34 07/22/23 07:34 Labs: Abnormal Lab Results - Last 24 Hours (Table) 07/21/23 07/22/23 07/22/23 Range/Units 14:00 06:03 07:34 WBC (3.8-10.6) k/uL Hgb (11.4-16.0) gm/dL Hct (34.0-46.0) % MCV (80.0-100.0) fL MCH (25.0-35.0) pg MCHC (31.0-37.0) g/dL RDW (11.5-15.5) % Lymphocytes # (1.0-4.8) k/uL BUN (7-17) mg/dL Glucose (74-99) mg/dL POC Glucose (mg/dL) 203 H (70-110) mg/dL Hemoglobin A1c 6.1 H (<=6.0) % TSH (0.465-4.680) mIU/L Crossmatch See Detail 07/22/23 07/22/23 07/22/23 Range/Units 07:34 07:34 11:40 WBC 3.5 L (3.8-10.6) k/uL Hgb 8.4 L D (11.4-16.0) gm/dL Hct 28.3 L (34.0-46.0) % MCV 71.3 L D (80.0-100.0) fL MCH 21.2 L (25.0-35.0) pg MCHC 29.7 L (31.0-37.0) g/dL RDW 22.5 H (11.5-15.5) % Lymphocytes # 0.8 L (1.0-4.8) k/uL BUN 6 L (7-17) mg/dL Glucose 167 H (74-99) mg/dL POC Glucose (mg/dL) 209 H (70-110) mg/dL Hemoglobin A1c (<=6.0) % TSH 7.630 H (0.465-4.680) mIU/L Crossmatch 07/22/23 07/22/23 Range/Units 16:40 20:05 WBC (3.8-10.6) k/uL Hgb (11.4-16.0) gm/dL Hct (34.0-46.0) % MCV (80.0-100.0) fL MCH (25.0-35.0) pg MCHC (31.0-37.0) g/dL RDW (11.5-15.5) % Lymphocytes # (1.0-4.8) k/uL BUN (7-17) mg/dL Glucose (74-99) mg/dL POC Glucose (mg/dL) 143 H 143 H (70-110) mg/dL Hemoglobin A1c (<=6.0) % TSH (0.465-4.680) mIU/L Crossmatch Assessment and Plan Assessment: Symptomatic anemia with hemoglobin 5.5 on admission. Possible chronic GI bleed Microcytic anemia rule out iron deficiency Hypovolemic hyponatremia Mild hypokalemia Hyperglycemia on admission with uncontrolled diabetes type 2 kqt-akkqeed-klzjmrwej. A1c 6.1 Hyperlipidemia History of NSAID/Aleve and baby aspirin use GI and DVT prophylaxis with SCDs Plan: Patient will be continued on IV hydration with normal saline. Patient received 2 units of PRBC. Monitor H&H closely. Started on iron supplementation IV. Normal, B12 and folate. TSH level elevated but free T4 level within normal limits.. FOBT is negative. Due to history of NSAID use patient will be given Protonix IV push and hematology was consulted for evaluation. Continue with insulin sliding scale. A1c 6.1 Current with home medications. Patient will be continued on PPI Gastroenterology is planning for EGD colonoscopy tomorrow. Appreciate hem atology recommendations. Time with Patient: Greater than 30
[2023-07-22 23:52] VITALS: RESP 16
[2023-07-23 06:08] LABS: Glucose,Whole Blood 167 mg/dL (70-110)
[2023-07-23] MEDS: MULTIVITAMINS, THERA 1 EACH TAB PO SCH (09:08)
[2023-07-23] MEDS: THIAMINE 100 MG TAB PO SCH (09:08)
[2023-07-23 09:48] LABS: Anisocytosis Moderate; Basophils % (A) 1 %; Eosinophils # (A) 0.1 k/uL (0-0.7); Eosinophils % (A) 3 %; HCT 28.7 % (34.0-46.0); HGB 8.5 gm/dL (11.4-16.0); Hypochromasia Marked; Lymphocytes # (A) 0.8 k/uL (1.0-4.8); Lymphocytes % (A) 23 %; MCH 20.7 pg (25.0-35.0); MCHC 29.5 g/dL (31.0-37.0); MCV 70.1 fL (80.0-100.0); Mean Platelet Volume 8.2; Microcytosis Marked; Monocytes # (A) 0.3 k/uL (0-1.0); Monocytes % (A) 9 %; Neutrophils # (A) 2.2 k/uL (1.3-7.7); Neutrophils % (A) 62 %; Platelet Count 271 k/uL (150-450); Poikilocytosis Marked; RBC 4.09 m/uL (3.80-5.40); RDW 23.7 % (11.5-15.5); WBC 3.6 k/uL (3.8-10.6)
[2023-07-23 11:34] LABS: Glucose,Whole Blood 149 mg/dL (70-110)
[2023-07-23] MEDS ORDERED: LIDOCAINE 1% INJ 10MG/ML (20 ML MDV) ONE (16:12)
[2023-07-23] MEDS ORDERED: PROPOFOL 10 MG/ML 20 ML VIAL IV ONE (16:12)
[2023-07-23] MEDS: SODIUM CHLORIDE 0.9% 1,000 ML IV ONE (16:14)
--- NOTE | 2023-07-23 16:41 | P.PCN ---
Date of Procedure: 07/23/23 Procedure(s) Performed: Brief history: Patient is a pleasant 72-year-old white female admitted hospital with severe symptomatic anemia and hemoglobin of 5.5 g/dL. Iron indices consistent with iron deficiency anemia. She is scheduled for anupper endoscopy as well as colonoscopy to evaluate further. Procedure performed: Esophagogastroduodenoscopy biopsy Colonoscopy Preoperative diagnosis: Severe symptomatic iron deficiency anemia. Anesthesia: MAC Procedure: After informed consent was obtained from the patient was brought into the endoscopy unit and IV sedation was administered by anesthesia under continuous monitoring. Initially upper endoscopy was done. The Olympus GF 160 video endoscope was inserted inserted into the mouth and esophagus intubated without any difficulty and was gradually advanced into the stomach and duodenum and carefully examined. The bulb and second part of the duodenum appeared normal. Abscesses were done from the duodenum to rule out celiac disease. The scope was then withdrawn into the stomach adequately insufflated with air and upon careful examination the antrum had multiple scattered erosions and biopsies were done from this area. Mucosa of the cardia and fundus appeared normal. There was a large hiatal hernia noted and multiple Cole erosions noted at the diaphragmatic hiatus. The scope was then withdrawn into the esophagus. The GE junction was located at 33 cm to the incisors. It appeared regular with no erythema erosions or ulcerations. Rest of the esophagus appeared normal. Patient tolerated the procedure well. At this time the patient continued to remain sedation. Initial digital rectal examination was normal. Olympus CF 160 video colonoscope was then inserted into the rectum and gradually advanced to the cecum without any difficulty. Careful examination was performed as the scope was gradually being withdrawn. The prep was excellent. The cecum, ascending colon, transverse colon, descending colon, sigmoid colon and rectum appeared normal. Scattered sigmoid diverticulosis. Retroflexion was performed in the rectum and no lesions were noted. Patient tolerated the procedure well. Impression: 1. Upper endoscopy revealed antral erosive gastritis, large hiatal hernia and multiple Cole erosions with no active bleeding 2. Colonoscopy revealed scattered sigmoid diverticulosis but no evidence of colorectal neoplasia Recommendations: Findings of this examination were discussed with the patient as well as her family. She was advised to follow with the biopsy results. Continue with Protonix 40 mg daily. Start iron supplements twice daily and monitor CBC on a periodic basis. Follow with the office in 3-4 weeks following discharge from the hospital
[2023-07-23 17:23] LABS: Glucose,Whole Blood 120 mg/dL (70-110)
[2023-07-23 20:13] LABS: Glucose,Whole Blood 191 mg/dL (70-110)
[2023-07-23 21:12] VITALS: TEMP 98.3
--- NOTE | 2023-07-23 22:30 | P.PN ---
Subjective Progress Note Date: 07/23/23 Patient is a 72-year-old female with a past medical history of diabetes type 2 doc-amjlgye-crfgqywmg, h hyperlipidemia presents to ER with complaints of generalized weakness worsening for the past 2 weeks. Patient states that she feels very tired and increased heart rate with minimal walking. Patient was also excessively dyspneic. Otherwise patient denied any complaints of chest pain/tightness. No complaints of nausea or vomiting. Complains of minimal lower abdominal discomfort. Denied any hematemesis. Patient states that she noticed specks of dark stool few days ago. Denies any dark tarry stools. Patient thought her symptoms are due to her diabetic medications. Patient does take Aleve twice daily and has been taking more often recently. Chest x-ray showed no acute cardiopulmonary process/disease. EKG showed sinus tachycardia. Laboratory data showed WBC 3.6 hemoglobin 5.5 MCV 61.9 and platelets 308 RDW 19.0 Sodium 135 potassium 3.4 chloride 102 BUN 6 and creatinine 0.51 and blood sugar 263. Urinalysis is negative for infection Stool for occult blood is negative. 07/22/2023 Patient is currently resting in the bed. Awake alert and oriented x 3. States that she feels better today. Hemoglobin improved to 8.4 No complaints of chest pain or shortness of breath. No headache or dizziness or lightheadedness. Patient is being continued on Protonix and was also started on iron supp lementation. Patient was seen by gastroenterology and is planning for EGD and colonoscopy likely tomorrow. Other laboratory data showed WBC 3.5 hemoglobin 8.4 and platelets 286 Sodium 137 potassium 4.0 chloride 106 bicarb is 23 BUN 16 creatinine 0.52 Blood sugar 167. A1c 6.1 TSH 7.63. Free T4 level within normal limits at 1.07 07/23/2023 Patient is currently resting on the side of the bed. Awake alert and oriented x 3. Currently n.p.o. and is awaiting procedure EGD and colonoscopy. No complaints of nausea or vomiting. No cough or sputum production. Denies any headache or dizziness. Denies any dark-colored stools. Laboratory data showed WBC 3.6 hemoglobin 8.5 and platelets 271 Patient is also receiving IV iron supplementation. Current medications reviewed. Objective - Vital Signs Vital signs: Vital Signs Temp 98.8 F 07/23/23 11:02 Pulse 88 07/23/23 11:02 Resp 16 07/23/23 11:02 BP 145/70 07/23/23 11:02 Pulse Ox 99 07/23/23 11:02 FiO2 Intake & Output 07/22/23 07/23/23 07/23/23 18:59 06:59 18:59 Intake Total 358 520 Balance 358 520 Intake: Oral 358 520 Other: # Voids 1 5 # Bowel Movements 1 2 5 - Exam PHYSICAL EXAMINATION: Patient is lying in the bed comfortably, no acute distress, awake alert and oriented.. HEENT: Normocephalic. Neck is supple. Pupils reactive. Nostrils clear. Oral cavity is moist. Neck reveals no JVD, carotid bruits, or thyromegaly. CHEST EXAMINATION: Trachea is central. Symmetrical expansion. Lung rojas clear to auscultation and percussion. CARDIAC: Normal S1, S2 with no gallops. No murmurs ABDOMEN: Soft. Bowel sounds normal. No organomegaly. No abdominal bruits. Extremities: reveal no edema. No clubbing or cyanosis Neurologically awake, alert, oriented x3 with well-coordinated movements. No focal deficits noted Skin: No rash or skin lesions. Psychiatric: Coperative. Nonsuicidal Musculoskeletal: No joint swelling or deformity. Normal range of motion. - Labs CBC & Chem 7: 07/23/23 08:12 07/22/23 07:34 Labs: Abnormal Lab Results - Last 24 Hours (Table) 07/22/23 07/22/23 07/23/23 Range/Units 16:40 20:05 06:07 WBC (3.8-10.6) k/uL Hgb (11.4-16.0) gm/dL Hct (34.0-46.0) % MCV (80.0-100.0) fL MCH (25.0-35.0) pg MCHC (31.0-37.0) g/dL RDW (11.5-15.5) % Lymphocytes # (1.0-4.8) k/uL POC Glucose (mg/dL) 143 H 143 H 167 H (70-110) mg/dL 07/23/23 07/23/23 Range/Units 08:12 11:27 WBC 3.6 L (3.8-10.6) k/uL Hgb 8.5 L (11.4-16.0) gm/dL Hct 28.7 L (34.0-46.0) % MCV 70.1 L (80.0-100.0) fL MCH 20.7 L (25.0-35.0) pg MCHC 29.5 L (31.0-37.0) g/dL RDW 23.7 H (11.5-15.5) % Lymphocytes # 0.8 L (1.0-4.8) k/uL POC Glucose (mg/dL) 149 H (70-110) mg/dL Assessment and Plan Assessment: Symptomatic anemia with hemoglobin 5.5 on admission. Possible chronic GI bleed. Microcytic anemia rule out iron deficiency. Receiving IV iron supplementation. Hypovolemic hyponatremia Mild hypokalemia Hyperglycemia on admission with uncontrolled diabetes type 2 xnf-bouqflo-deuroijws. A1c 6.1 Hyperlipidemia History of NSAID/Aleve and baby aspirin use GI and DVT prophylaxis with SCDs Plan: Patient will be continued on IV hydration with normal saline. Patient received 2 units of PRBC. Hemoglobin is stable. Started on iron supplementation IV. Normal, B12 and folate. TSH level elevated but free T4 level within normal limits.. FOBT is negative. Due to history of NSAID use patient will be given Protonix IV push and hematology was consulted for evaluation. Continue with insulin sliding scale. A1c 6.1 Current with home medications. Patient will be continued on PPI Patient is scheduled for EGD and colonoscopy today.. Hematology is also on board. Time with Patient: Greater than 30
[2023-07-24 06:16] LABS: Glucose,Whole Blood 150 mg/dL (70-110)
[2023-07-24 09:02] LABS: Anisocytosis Marked; Basophils % (A) 0 %; Eosinophils # (A) 0.1 k/uL (0-0.7); Eosinophils % (A) 2 %; HCT 27.3 % (34.0-46.0); HGB 7.9 gm/dL (11.4-16.0); Hypochromasia Marked; Lymphocytes # (A) 0.6 k/uL (1.0-4.8); Lymphocytes % (A) 14 %; MCH 20.6 pg (25.0-35.0); MCHC 28.9 g/dL (31.0-37.0); Mean Platelet Volume 8.8; Microcytosis Marked; Monocytes # (A) 0.4 k/uL (0-1.0); Monocytes % (A) 8 %; Neutrophils # (A) 3.1 k/uL (1.3-7.7); Neutrophils % (A) 73 %; Platelet Count 260 k/uL (150-450); Poikilocytosis Marked; RBC 3.84 m/uL (3.80-5.40); WBC 4.3 k/uL (3.8-10.6)
[2023-07-24 09:19] LABS: African American GFR (CKD) >90 (>60 ml/min/1.73 sqM); Anion Gap 5 mmol/L; Blood Urea Nitrogen 8 mg/dL (7-17); Calcium 8.6 mg/dL (8.4-10.2); Carbon Dioxide 25 mmol/L (22-30); Chloride 105 mmol/L (98-107); Glucose 183 mg/dL (74-99); Non-African American GFR(CKD) >90 (>60 ml/min/1.73 sqM); Potassium 3.8 mmol/L (3.5-5.1); Sodium 135 mmol/L (137-145)
[2023-07-24 11:30] LABS: Glucose,Whole Blood 161 mg/dL (70-110)
[2023-07-24] MEDS: LACTATED RINGERS 1,000 ML IV SCH (12:31)
[2023-07-24 12:55] VITALS: BP 159/52; PULSE 88
== END 2023-07-24 15:54 | disposition home or self-care (01) | DRG 812 ==
LOC: EC 10:08 → 3SCARD 14:26
PROVIDERS: ADMIT Internal Medicine; ATTEND Internal Medicine
PROC: 30233N1 Transfusion of Nonautologous Red Blood Cells into Peripheral Vein, Percutaneous Approach (ICD-10-PCS; 2023-07-21)
PROC: 0DB78ZX Excision of Stomach, Pylorus, Via Natural or Artificial Opening Endoscopic, Diagnostic (ICD-10-PCS; principal; 2023-07-23 14:30)
PROC: 0DB98ZX Excision of Duodenum, Via Natural or Artificial Opening Endoscopic, Diagnostic (ICD-10-PCS; principal; 2023-07-23 14:30)
DX: D50.9 Iron deficiency anemia, unspecified (principal); E87.1 Hypo-osmolality and hyponatremia; D53.9 Nutritional anemia, unspecified; E11.65 Type 2 diabetes mellitus with hyperglycemia; E78.5 Hyperlipidemia, unspecified; E86.1 Hypovolemia; E87.6 Hypokalemia; H81.10 Benign paroxysmal vertigo, unspecified ear; K29.60 Other gastritis without bleeding; K44.9 Diaphragmatic hernia without obstruction or gangrene; K25.9 Gastric ulcer, unspecified as acute or chronic, without hemorrhage or perforation; K57.30 Diverticulosis of large intestine without perforation or abscess without bleeding; Z79.1 Long term (current) use of non-steroidal anti-inflammatories (NSAID); Z79.82 Long term (current) use of aspirin; Z79.899 Other long term (current) drug therapy; Z83.3 Family history of diabetes mellitus
CPT/HCPCS: 36415; 43239; 45378; 71046; 80048; 80053; 81003; 82272; 82607; 82728; 82746; 82747; 83036; 83540; 83550; 83735; 83921; 84439; 84443; 84484; 85025; 85610; 85730; 86850; 86900; 86901; 86920; 93005; 94760; 96374; 99285

== ENCOUNTER → 2024-06-09 | Outpatient (CLI) | payer MEDICARE ==
--- NOTE | 2024-06-09 17:08 | CT ---
EXAMINATION TYPE: CT abdomen pelvis wo/w con CT DLP: 982.70 mGycm, Automated exposure control for dose reduction was used. DATE OF EXAM: 06/09/2024 2:44 PM COMPARISON: None CLINICAL INDICATION:Female, 73 years old with history of R10.84 ABD PAIN R19.7 DIARRHEA; abdominal pa in, cramping, bloating and constipation x few weeks. IV contrast only TECHNIQUE: Standard CT of the abdomen and pelvis before and after the uneventful administration of 100 mL of Isovue-370 intravenously. Coronal and sagittal reformats were performed. FINDINGS: LOWER CHEST: Unremarkable ABDOMEN LIVER: Unremarkable GALLBLADDER AND BILE DUCTS: Unremarkable. PANCREAS: Unremarkable. SPLEEN: Unremarkable. ADRENAL GLANDS: Unremarkable. KIDNEYS AND URETERS: No evidence of hydronephrosis or renal calculus. The kidneys enhance symmetrical ly. Contrast is demonstrated within both collecting systems on the delayed phase. PELVIS BLADDER: Incompletely distended but grossly unremarkable. REPRODUCTIVE: Unremarkable. ABDOMEN & PELVIS STOMACH AND BOWEL: Large hiatal hernia containing approximately two thirds of the stomach intrathorac ic.Distal colonic diverticulosis without evidence for acute diverticulitis. No focal bowel wall thick ening. Mild contrast over time. The appendix is within normal limits. No evidence of bowel obstructio n. PERITONEUM: No evidence of pneumoperitoneum or free fluid. VASCULATURE: Mild atherosclerotic calcifications are present throughout the abdominal aorta and its b ranches. No evidence of aortic aneurysm. MUSCULOSKELETAL: No acute osseous abnormalities. Sclerotic 1.1 cm lesion within the L5 vertebral body . Minimal multilevel degenerative disc disease and facet arthropathy. LYMPH NODES: No evidence for lymphadenopathy. SOFT TISSUE/ABDOMINAL WALL: Unremarkable IMPRESSION: 1. No acute abdominal/pelvic process. 2. Large hiatal hernia containing approximately two thirds of the stomach intrathoracic. 3. Colonic diverticulosis without evidence for acute diverticulitis. 4. Nonspecific 1.1 cm chronic lesion within the L5 vertebral body. May represent a benign bone island in the absence of known malignancy. [facility], , 06/09/2024 5:05 PM
== END | disposition home or self-care (01) ==
LOC: RADCTMAIN 13:40
PROVIDERS: ATTEND Family Medicine
DX: K44.9 Diaphragmatic hernia without obstruction or gangrene (principal); R19.7 Diarrhea, unspecified; K57.30 Diverticulosis of large intestine without perforation or abscess without bleeding
CPT/HCPCS: 74178; Q9967